=== PATIENT | female | born 1975 | race Caucasian/White ===

== ENCOUNTER → 2016-06-13 | Outpatient (CLI) | payer BC | END | disposition home or self-care (01) | LOC: LABWHC1 07:36 | PROVIDERS: ATTEND Internal Medicine Endocrinology, Diabetes & Metabolism | DX: E05.90 Thyrotoxicosis, unspecified without thyrotoxic crisis or storm (principal); E04.2 Nontoxic multinodular goiter | CPT/HCPCS: 36415; 84439; 84443; 84480 ==

== ENCOUNTER → 2016-08-15 | Outpatient (CLI) | payer BC | END | disposition home or self-care (01) | LOC: LABWHC1 07:59 | PROVIDERS: ATTEND Internal Medicine Endocrinology, Diabetes & Metabolism | DX: E05.90 Thyrotoxicosis, unspecified without thyrotoxic crisis or storm (principal) | CPT/HCPCS: 36415; 84439; 84443; 84480 ==

== ENCOUNTER → 2016-11-14 | Outpatient (CLI) | payer BC | END | disposition home or self-care (01) | LOC: LABWHC1 09:07 | PROVIDERS: ATTEND Internal Medicine Endocrinology, Diabetes & Metabolism | DX: E05.90 Thyrotoxicosis, unspecified without thyrotoxic crisis or storm (principal) | CPT/HCPCS: 36415; 84439; 84443; 84481 ==

== ENCOUNTER → 2017-06-21 | Outpatient (CLI) | payer BC ==
[2017-06-21 18:10] LABS: T4, Free (Free Thyroxine) 0.86 ng/dL (0.78-2.19)
== END | disposition home or self-care (01) ==
LOC: LABWHC1 17:21
PROVIDERS: ATTEND Internal Medicine Endocrinology, Diabetes & Metabolism
DX: E05.90 Thyrotoxicosis, unspecified without thyrotoxic crisis or storm (principal)
CPT/HCPCS: 36415; 84439; 84443; 84480

== ENCOUNTER → 2017-10-05 | Outpatient (CLI) | payer BC ==
[2017-10-05 16:26] LABS: T4, Free (Free Thyroxine) 1.03 ng/dL (0.78-2.19)
== END | disposition home or self-care (01) ==
LOC: LABWHC1 15:20
PROVIDERS: ATTEND Internal Medicine Endocrinology, Diabetes & Metabolism
DX: E05.90 Thyrotoxicosis, unspecified without thyrotoxic crisis or storm (principal)
CPT/HCPCS: 36415; 84439; 84443; 84480

== ENCOUNTER → 2018-01-27 | Outpatient (CLI) | payer BC ==
[2018-01-27 10:42] LABS: T4, Free (Free Thyroxine) 1.12 ng/dL (0.78-2.19)
== END | disposition home or self-care (01) ==
LOC: LABWHC1 06:57
PROVIDERS: ATTEND Internal Medicine Endocrinology, Diabetes & Metabolism
DX: E05.20 Thyrotoxicosis with toxic multinodular goiter without thyrotoxic crisis or storm (principal)
CPT/HCPCS: 36415; 84439; 84443; 84480

== ENCOUNTER → 2019-03-10 | Outpatient (CLI) | payer BC ==
[2019-03-10 16:04] LABS: T4, Free (Free Thyroxine) 1.1 ng/dL (0.80-1.80)
== END | disposition home or self-care (01) ==
LOC: LABWHC1 09:46
PROVIDERS: ATTEND Internal Medicine Endocrinology, Diabetes & Metabolism
DX: E05.20 Thyrotoxicosis with toxic multinodular goiter without thyrotoxic crisis or storm (principal)
CPT/HCPCS: 36415; 84439; 84443; 84480

== ENCOUNTER → 2019-03-28 | Outpatient (CLI) | payer BC ==
--- NOTE | 2019-03-28 15:18 | US ---
EXAMINATION TYPE: US thyroid st tissue head/neck DATE OF EXAM: 03/28/2019 COMPARISON: US March 03, 2016. 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 GLAND SIZE: Right Lobe: 4.7 x 2.1 x 1.2 cm Overall Parenchyma: homogenous Left Lobe: 4.4 x 1.8 x 1.2 cm Overall Parenchyma: homogeneous Isthmus Thickness: 0.5 cm NODULES RIGHT: # of nodules measured on right: 1measured with 2 subcentimeter nodules not included on this worksheet 1. 0.8 X 0.9 x 0.7 cm isoechoic solid nodule at the lower pole with poorly defined margins. This n odule is wider than tall and shows intranodular vascularity. (no prior nodules seen) LEFT: # of nodules measured on left: 2 1. 1.3 X 1.0 x 0.5 cm hypoechoic mixed nodule at the mid medial pole with well-defined margins. Th is nodule is wider than tall and shows intranodular vascularity. Prior size: 0.6 x 0.6 x 0.2 cm 2. 1.1 X 1.0 x 0.7 cm isoechoic mixed nodule at the lower lateral pole with well-defined margins; in terrupted peripheral calcification. This nodule is wider than tall and shows intranodular vascularit y. Prior size: 1.3 x 0.8 x 1.0 cm ISTHMUS: # of nodules measured in the isthmus: 1 1. 0.5 X 0.6 x 0.2 cm hypoechoic mixed nodule at the mid pole with well-defined margins. This nodu le is wider than tall and shows intranodular vascularity. ( no prior) Bilateral neck scanned: lymph node imaged inferior to left thyroid= 0.8 x 0.7 x 0.5cm Slightly heterogeneous normal-sized thyroid with stable small nodules bilaterally IMPRESSION: As above. No suspicious new Greater than 1 cm thyroid nodule.
== END | disposition home or self-care (01) ==
LOC: RADUSWWP 13:44
PROVIDERS: ATTEND Internal Medicine Endocrinology, Diabetes & Metabolism
DX: E05.20 Thyrotoxicosis with toxic multinodular goiter without thyrotoxic crisis or storm (principal)
CPT/HCPCS: 76536

== ENCOUNTER 2019-04-08 05:18 | Emergency (ER) | payer BC, OTHER ==
[2019-04-08 05:23] VITALS: BP 154/105; PULSE 89; RESP 18; TEMP 98
--- NOTE | 2019-04-08 05:53 | ED ---
Head Injury HPI - General Chief complaint: Head Injury Stated complaint: Head Injury Time Seen by Provider: 04/08/19 05:46 Source: patient Mode of arrival: ambulatory Limitations: no limitations - History of Present Illness Initial comments: this patient is a 44-year-old woman presenting to be evaluated after she had a head injury at work. The patient states that she was running and struck her head on an overhanging wall. She indicates the left temporal area. The patient did not have loss consciousness. She developed some swelling in that area and the work files supervisor felt she should be checked. The patient states she does have some mild localized pain. She denies any other injury. There is no neck or back pain. She has no neurologic symptoms. She has not had change in vision or other sensation. MD Complaint: head injury -: minutes(s) Mechanism of Injury: work related injury Location: temporal Loss of Consciousness: no Previous Trauma to this Area: No Place: work Radiation: none Severity: mild Severity scale (1-10): 2 Quality: dull Consistency: constant Provoking factors: none known Other Injuries: none - Related Data Home Medications Medication Instructions Recorded Confirmed Baclofen [Lioresal] 5 mg PO TID 11/09/15 11/09/15 Cetirizine HCl 10 mg PO DAILY 11/09/15 11/09/15 Levonorgestrel-Ethin Estradiol 1 tab PO DAILY 11/09/15 11/09/15 [Lutera-28 Tablet] Lisinopril [Zestril] 2.5 mg PO DAILY 11/09/15 11/09/15 Omeprazole 20 mg PO DAILY 11/09/15 11/09/15 Previous Rx's Medication Instructions Recorded Acetaminophen-Codeine 300-30mg 1 each PO Q6H PRN #20 tablet 11/09/15 [Tylenol #3] Allergies/Adverse reactions: Allergies Allergy/AdvReac Type Severity Reaction Status Date / Time No Known Allergies Allergy Verified 04/08/19 05:23 Review of Systems ROS Statement: Those systems with pertinent positive or pertinent negative responses have been documented in the HPI. ROS Other: All systems not noted in ROS Statement are negative. Constitutional: Denies: fever, weakness Eyes: Denies: eye pain, vision change ENT: Denies: ear pain, epistaxis Respiratory: Denies: cough, dyspnea Cardiovascular: Denies: chest pain Gastrointestinal: Denies: nausea, vomiting Musculoskeletal: Denies: back pain Neurological: Reports: as per HPI, headache. Denies: weakness, numbness, paresthesias, confusion, abnormal gait Hematological/Lymphatic: Denies: easy bleeding Past Medical History Past Medical History: Asthma, Hypertension, Thyroid Disorder Additional Past Medical History / Comment(s): hyperthyroid, melenoma, History of Any Multi-Drug Resistant Organisms: None Reported Past Surgical History: Cholecystectomy Additional Past Surgical History / Comment(s): MELONOMA LYMPH REMOVAL RIGHT SIDE, Past Psychological History: No Psychological Hx Reported Smoking Status: Former smoker Past Alcohol Use History: Daily Past Drug Use History: Marijuana General Exam Limitations: no limitations General appearance: alert, in no apparent distress Head exam: Present: normocephalic, other (patient has a small left temporal scalp hematoma. There is no bony tenderness or deformity.) Eye exam: Present: normal appearance. Absent: scleral icterus, conjunctival injection ENT exam: Present: normal oropharynx, TM's normal bilaterally, normal external ear exam Neck exam: Present: normal inspection, full ROM. Absent: tenderness, meningismus Respiratory exam: Present: normal lung sounds bilaterally. Absent: respiratory distress, wheezes, rales, rhonchi, stridor Cardiovascular Exam: Present: regular rate, normal rhythm, normal heart sounds. Absent: systolic murmur, diastolic murmur, rubs, gallop Back exam: Absent: vertebral tenderness Neurological exam: Present: alert, oriented X3, CN II-XII intact, normal gait. Absent: motor sensory deficit Skin exam: Present: warm, dry, intact, normal color. Absent: rash Course Vital Signs 04/08/19 05:20 Temperature 98.0 F Pulse Rate 89 Respiratory 18 Rate Blood Pressure 154/105 O2 Sat by Pulse 97 Oximetry Disposition Clinical Impression: Closed head injury Disposition: HOME SELF-CARE Condition: Good Instructions (If sedation given, give patient instructions): Head Injury (ED) Is patient prescribed a controlled substance at d/c from ED?: No Referrals: Brigette Nolasco MD [Primary Care Provider] - 1-2 days
== END 2019-04-08 06:09 | disposition home or self-care (01) ==
LOC: EC 05:18
DX: S00.03XA Contusion of scalp, initial encounter (principal); I10 Essential (primary) hypertension; Z79.899 Other long term (current) drug therapy; Z79.3 Long term (current) use of hormonal contraceptives; W22.01XA Walked into wall, initial encounter; Y93.02 Activity, running
CPT/HCPCS: 99283

== ENCOUNTER 2020-11-20 11:01 | Emergency (ER) | payer BC, OTHER ==
[2020-11-20 11:11] VITALS: BP 122/87; RESP 18; TEMP 98.2
[2020-11-20 11:23] VITALS: PULSE 112
[2020-11-20] MEDS ORDERED: ACET/COD 300 MG/30 MG STARTER PACK 6 TAB BTL PO STA (11:51)
[2020-11-20] MEDS ORDERED: HYDROmorphone 1 MG/ML 1 ML SYRINGE IM STA (11:51)
--- NOTE | 2020-11-20 11:57 | ED ---
General Adult HPI - General Chief complaint: Recheck/Abnormal Lab/Rx Stated complaint: jaw pain Source: patient, RN notes reviewed Mode of arrival: ambulatory Limitations: no limitations - History of Present Illness Initial comments: 45-year-old well-appearing white female, alert and oriented 4, presents to the emergency room with complaints of right-sided facial pain. Patient states that she has been really stressed out at work and she's been clenching her jaw. She does have a history of TMJ clicking on the right side. She states that she was seen at [facility] on Wednesday and given a shot of Solu-Medrol for TMJ symptoms and told to take Tylenol. Patient states that she's not had any relief from the pain yet she was also prescribed prednisone 20 mg 3 times a day for 5 days and she started that yesterday. Patient states that she can't sleep at night related to the pain. She feels it goes into her right ear. She has no focal neurological deficits. Speech is clear. Denies any fevers or injuries. No dental pain. -: days(s) (5) Location: face (Right side from ear to jaw) Severity scale (1-10): 8 Quality: aching, sharp Consistency: constant Improves with: none Worsens with: none Associated Symptoms: denies other symptoms Treatments Prior to Arrival: other (Prednisone and Solu-Medrol shot at [facility]) - Related Data Home Medications Medication Instructions Recorded Confirmed Baclofen [Lioresal] 5 mg PO TID 11/09/15 11/09/15 Cetirizine HCl 10 mg PO DAILY 11/09/15 11/09/15 Levonorgestrel-Ethin Estradiol 1 tab PO DAILY 11/09/15 11/09/15 [Lutera-28 Tablet] Omeprazole 20 mg PO DAILY 11/09/15 11/09/15 lisinopriL [Zestril] 2.5 mg PO DAILY 11/09/15 11/09/15 Previous Rx's Medication Instructions Recorded Acetaminophen-Codeine 300-30mg 1 each PO Q6H PRN #20 tablet 11/09/15 [Tylenol #3] Allergies Allergy/AdvReac Type Severity Reaction Status Date / Time No Known Allergies Allergy Verified 11/20/20 11:11 Review of Systems ROS Statement: Those systems with pertinent positive or pertinent negative responses have been documented in the HPI. ROS Other: All systems not noted in ROS Statement are negative. Past Medical History Past Medical History: Asthma, Hypertension, Thyroid Disorder Additional Past Medical History / Comment(s): hyperthyroid, melenoma, History of Any Multi-Drug Resistant Organisms: None Reported Past Surgical History: Cholecystectomy Additional Past Surgical History / Comment(s): MELONOMA LYMPH REMOVAL RIGHT SIDE, Past Psychological History: Anxiety Smoking Status: Former smoker Past Alcohol Use History: Daily Past Drug Use History: Marijuana General Exam Limitations: no limitations General appearance: alert, in no apparent distress Head exam: Present: atraumatic, normocephalic, normal inspection Expanded Head exam: Present: general tenderness (Right-sided facial tenderness consistent with TMJ) Eye exam: Present: normal appearance, PERRL, EOMI. Absent: scleral icterus, conjunctival injection, periorbital swelling ENT exam: Present: normal exam, normal oropharynx, mucous membranes moist Expanded Mouth exam: Present: normal external inspection, tongue normal, tongue elevation. Absent: drooling, trismus, muffled voice, laceration Teeth exam: Present: normal inspection. Absent: dental caries, gingival enlargement Throat exam: normal inspection. negative: tonsillar erythema, tonsillomegaly, tonsillar exudate, R peritonsillar mass, L peritonsillar mass Neck exam: Present: normal inspection, full ROM. Absent: tenderness, meningismus, lymphadenopathy, thyromegaly Respiratory exam: Present: normal lung sounds bilaterally. Absent: respiratory distress, wheezes, rales, rhonchi, stridor, chest wall tenderness, accessory muscle use, decreased breath sounds, prolonged expiratory Cardiovascular Exam: Present: regular rate, normal rhythm, normal heart sounds. Absent: systolic murmur, diastolic murmur, rubs, gallop, clicks GI/Abdominal exam: Present: soft, normal bowel sounds. Absent: distended, ten derness, guarding, rebound, rigid Extremities exam: Present: normal inspection, full ROM, normal capillary refill. Absent: tenderness, pedal edema, joint swelling, calf tenderness Back exam: Present: normal inspection, full ROM. Absent: tenderness, CVA tenderness (R), CVA tenderness (L), muscle spasm, paraspinal tenderness, vertebral tenderness Neurological exam: Present: alert, oriented X3, CN II-XII intact Expanded Patient oriented to: Present: person, place, time Speech: Present: fluid speech Cranial nerves: EOM's Intact: Normal, Gag Reflex: Normal, Tongue Deviation: Normal Motor strength exam: RUE: 5, LUE: 5, RLE: 5, LLE: 5 Eye Response: (4) open spontaneously Motor Response: (6) obeys commands Verbal Response: (5) oriented Venkatesh Total: 15 Psychiatric exam: Present: normal affect, normal mood Skin exam: Present: warm, dry, intact, normal color. Absent: rash, cyanosis, diaphoretic, erythema, petechiae, pallor, mottled Course Vital Signs 11/20/20 11/20/20 11:07 11:22 Temperature 98.2 F Pulse Rate 131 H 112 H Respiratory 18 Rate Blood Pressure 122/87 O2 Sat by Pulse 98 Oximetry Medical Decision Making - Medical Decision Making Patient's pain is consistent with TMJ inflammation. She denies any chest pain or shortness of breath. She has taken one day of her steroids that was prescribed at [facility]. Patient was given pain medication in the emergency room will be referred to ENT. Patient is agreeable to being discharged home and following up Case discussed with Dr poole. 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 Tylenol as needed for pain and return if any worsening pain or fevers. Is patient prescribed a controlled substance at d/c from ED?: No Referrals: Brigette Nolasco MD [Primary Care Provider] - 1-2 days Vince Gabriel MD [STAFF PHYSICIAN] - 1-2 days Time of Disposition: 12:04
== END 2020-11-20 12:33 | disposition home or self-care (01) ==
LOC: EC 11:01
DX: M26.601 Right temporomandibular joint disorder, unspecified (principal); G51.8 Other disorders of facial nerve; J45.909 Unspecified asthma, uncomplicated; I10 Essential (primary) hypertension; Z87.891 Personal history of nicotine dependence; Z79.899 Other long term (current) drug therapy
CPT/HCPCS: 99283; 96372; J1170